=== PATIENT | male | born 1970 | race Caucasian/White ===

== ENCOUNTER → 2017-03-31 | Outpatient (CLI) | payer MEDICAID, OTHER ==
[~2017-03-31] MED LIST: AMLO10TA4 PO; CLON0.1T12 PO; HYDR-3343 PO; HYDR25TA6 PO; METO50TA82 PO; SIMV40TA PO
== END | disposition home or self-care (01) ==
LOC: CFH 11:22
PROVIDERS: ATTEND Specialist
DX: M19.071 Primary osteoarthritis, right ankle and foot (principal); M19.072 Primary osteoarthritis, left ankle and foot; M77.31 Calcaneal spur, right foot; M77.32 Calcaneal spur, left foot

== ENCOUNTER → 2018-04-26 | Outpatient (CLI) | payer MEDICAID | END | disposition home or self-care (01) | LOC: CFH 12:32 | PROVIDERS: ATTEND Internal Medicine Nephrology | DX: N13.2 Hydronephrosis with renal and ureteral calculous obstruction (principal); N13.4 Hydroureter; I12.9 Hypertensive chronic kidney disease with stage 1 through stage 4 chronic kidney disease, or unspecified chronic kidney disease; N18.3 Chronic kidney disease, stage 3 (moderate); I51.7 Cardiomegaly; J84.10 Pulmonary fibrosis, unspecified; M51.34 Other intervertebral disc degeneration, thoracic region; M51.37 Other intervertebral disc degeneration, lumbosacral region; G89.29 Other chronic pain; R16.1 Splenomegaly, not elsewhere classified | CPT/HCPCS: 71046; 72100; 74150 ==

== ENCOUNTER 2018-05-16 14:34 | Inpatient (IN) | payer MEDICAID ==
[~2018-05-16] VITALS: Ht 185.4 cm; Wt 143.5 kg
[2018-05-16 15:10] LABS: BASOPHILS # (AUTO) 0.07 x10^3/uL (0-0.1); BASOPHILS % (AUTO) 1 % (0-1); EOSINOPHILS # (AUTO) 0.36 x10^3/uL (0-0.4); EOSINOPHILS % (AUTO) 5 % (1-7); LYMPHOCYTES # (AUTO) 0.79 x10^3/uL (1-3.4); LYMPHOCYTES % (AUTO) 11 % (22-44); MD NO; MEAN CORPUSCULAR HEMOGLOBIN 30.8 pg (27.5-34.5); MEAN CORPUSCULAR HGB CONC 33.4 g/dL (33.2-36.2); MEAN CORPUSCULAR VOLUME 92.4 fL (81-97); MEAN PLATELET VOLUME 7.5 fL (7.4-10.4); MONOCYTES % (AUTO) 6 % (2-9); NEUTROPHILS # (AUTO) 5.44 x10^3/uL (1.8-6.8); NEUTROPHILS % (AUTO) 77 % (42-75); PLATELET COUNT 189 x10^3/uL (130-400); RED BLOOD COUNT 4.57 x10^6/uL (4.38-5.82); RED CELL DISTRIBUTION WIDTH 13.7 % (9.4-14.8)
[2018-05-16 15:22] LABS: ALBUMIN 3.8 g/dL (3.4-5.0); ANION GAP 9 mmol/L (5-15); CHLORIDE 107 mmol/L (98-107)
[2018-05-16] MEDS ORDERED: FUROSEMIDE 40 MG/4 ML ONE (17:55)
[2018-05-16] MEDS ORDERED: FUROSEMIDE 40 MG/4 ML IV ONE (18:00)
[2018-05-16] MEDS ORDERED: FUROSEMIDE 100 MG/10 ML IV ONE (18:00)
[2018-05-16] MEDS ORDERED: LOSA25TA5 PO (18:55)
[2018-05-16] MEDS ORDERED: GLIP2.5T3 PO (18:55)
[2018-05-16] MEDS ORDERED: HYDR-879 PO (18:55)
[2018-05-16] MEDS ORDERED: METO50TA82 PO (18:55)
[2018-05-16] MEDS ORDERED: ALLO300T PO (18:55)
[2018-05-16] MEDS ORDERED: CHOL400C11 PO (18:55)
[2018-05-16] MEDS ORDERED: COLC0.6T37 PO (18:55)
[2018-05-16] MEDS ORDERED: ACET-76 PO (18:55)
[2018-05-16] MEDS ORDERED: GABA300C10 PO (18:55)
[2018-05-16] MEDS ORDERED: ONDANSETRON 2MG/ML, 2ML IVPush PRN (19:30)
[2018-05-16] MEDS ORDERED: ONDANSETRON ODT 4 MG PO PRN (19:30)
[2018-05-16] MEDS ORDERED: DOCUSATE 100 MG CAPSULE PO PRN (19:30)
[2018-05-16] MEDS ORDERED: ACETAMINOPHEN 325 MG TABLET PO PRN (19:30)
[2018-05-16 19:50] LABS: HCT (SEDRATE) 43.8 % (39.2-51.8)
[2018-05-16 20:06] LABS: HEMOGLOBIN A1C 5.4 % (4.2-6.3)
[2018-05-16] MEDS: TEMAZEPAM 15 MG CAPSULE PO PRN (21:59)
[2018-05-16] MEDS: HEPARIN 5,000 UNITS/ML, 1ML SQ SCH (22:00)
[2018-05-16] MEDS: SIMVASTATIN 40 MG TABLET PO SCH (22:00)
[2018-05-16] MEDS: GABAPENTIN 300 MG CAPSULE PO SCH (22:00)
[2018-05-16] MEDS: CLINDAMYCIN PMX 600MG/50ML 50 ML IV SCH (22:00)
[2018-05-16 22:15] VITALS: BP 115/69
[2018-05-17] MEDS: SODIUM BICARBONATE 8.4% 75 MEQ in SODIUM CHLORIDE 0.45% 1,000 ML IV SCH ×2 (00:49→14:11)
[2018-05-17 01:00] VITALS: BP 122/74
[2018-05-17 06:04] LABS: BASOPHILS # (AUTO) 0.03 x10^3/uL (0-0.1); BASOPHILS % (AUTO) 1 % (0-1); EOSINOPHILS # (AUTO) 0.29 x10^3/uL (0-0.4); EOSINOPHILS % (AUTO) 5 % (1-7); LYMPHOCYTES # (AUTO) 0.94 x10^3/uL (1-3.4); LYMPHOCYTES % (AUTO) 15 % (22-44); MD NO; MEAN CORPUSCULAR HEMOGLOBIN 30.8 pg (27.5-34.5); MEAN CORPUSCULAR HGB CONC 33.6 g/dL (33.2-36.2); MEAN CORPUSCULAR VOLUME 91.6 fL (81-97); MEAN PLATELET VOLUME 7.4 fL (7.4-10.4); MONOCYTES # (AUTO) 0.44 x10^3/uL (0.2-0.8); MONOCYTES % (AUTO) 7 % (2-9); NEUTROPHILS # (AUTO) 4.52 x10^3/uL (1.8-6.8); NEUTROPHILS % (AUTO) 73 % (42-75); PLATELET COUNT 169 x10^3/uL (130-400); RED BLOOD COUNT 4.48 x10^6/uL (4.38-5.82); RED CELL DISTRIBUTION WIDTH 13.9 % (9.4-14.8)
[2018-05-17 06:13] LABS: ALANINE AMINOTRANSFERASE 19 U/L (12-78); ALBUMIN 3.7 g/dL (3.4-5.0); ANION GAP 12 mmol/L (5-15); CALCIUM 10.6 mg/dL (8.5-10.1); CHLORIDE 104 mmol/L (98-107)
[2018-05-17 06:15] LABS: ALKALINE PHOSPHATASE 92 U/L (45-117); BILIRUBIN,TOTAL 0.6 mg/dL (0.2-1.0); TOTAL PROTEIN 7.7 g/dL (6.4-8.2)
[2018-05-17] MEDS: CLINDAMYCIN PMX 600MG/50ML 50 ML IV SCH (06:19)
[2018-05-17] MEDS: HEPARIN 5,000 UNITS/ML, 1ML SQ SCH ×2 (06:19→14:13)
[2018-05-17 07:06] VITALS: BP 128/85
[2018-05-17] MEDS: METOPROLOL TARTRATE 50 MG TABLET PO SCH (10:29)
[2018-05-17 13:47] LABS: MICROSCOPIC AUTO
[2018-05-17 13:53] LABS: CULTURE INDICATED? YES
[2018-05-17 14:01] LABS: CREATININE,URINE RANDOM 70.1 mg/dL
[2018-05-17 14:05] VITALS: BP 114/77
[2018-05-17 19:12] VITALS: BP 106/69
[2018-05-17] MEDS: TEMAZEPAM 15 MG CAPSULE PO PRN (22:34)
[2018-05-17] MEDS: GABAPENTIN 300 MG CAPSULE PO SCH (22:34)
[2018-05-17] MEDS: SIMVASTATIN 40 MG TABLET PO SCH (22:34)
[2018-05-18 01:09] VITALS: BP 116/75
[2018-05-18 05:04] LABS: BASOPHILS # (AUTO) 0.05 x10^3/uL (0-0.1); BASOPHILS % (AUTO) 1 % (0-1); EOSINOPHILS # (AUTO) 0.29 x10^3/uL (0-0.4); EOSINOPHILS % (AUTO) 5 % (1-7); LYMPHOCYTES # (AUTO) 0.89 x10^3/uL (1-3.4); LYMPHOCYTES % (AUTO) 14 % (22-44); MD NO; MEAN CORPUSCULAR HEMOGLOBIN 30.8 pg (27.5-34.5); MEAN CORPUSCULAR HGB CONC 33.6 g/dL (33.2-36.2); MEAN CORPUSCULAR VOLUME 91.7 fL (81-97); MEAN PLATELET VOLUME 7.5 fL (7.4-10.4); MONOCYTES # (AUTO) 0.51 x10^3/uL (0.2-0.8); MONOCYTES % (AUTO) 8 % (2-9); NEUTROPHILS # (AUTO) 4.47 x10^3/uL (1.8-6.8); NEUTROPHILS % (AUTO) 72 % (42-75); PLATELET COUNT 162 x10^3/uL (130-400); RED BLOOD COUNT 4.39 x10^6/uL (4.38-5.82); RED CELL DISTRIBUTION WIDTH 13.5 % (9.4-14.8)
[2018-05-18 05:11] LABS: ANION GAP 13 mmol/L (5-15); CALCIUM 10.5 mg/dL (8.5-10.1); CHLORIDE 103 mmol/L (98-107)
[2018-05-18] MEDS: SODIUM BICARBONATE 8.4% 75 MEQ in SODIUM CHLORIDE 0.45% 1,000 ML IV SCH (06:35)
[2018-05-18 06:53] VITALS: BP 125/77
[2018-05-18] MEDS: METOPROLOL TARTRATE 50 MG TABLET PO SCH (08:50)
[2018-05-18 10:17] LABS: INTERNATIONAL NORMALIZED RATIO 0.99 (0.93-1.1); PROTHROMBIN TIME 10.2 Seconds (9.6-11.5)
[2018-05-18] MEDS ORDERED: LIDOCAINE-MPF 2% ,5ML ONE ×2 (11:14→11:17)
[2018-05-18] MEDS ORDERED: MIDAZOLAM 1 MG/ML, 5ML ONE (11:24)
[2018-05-18] MEDS ORDERED: FENTANYL PF 100 MCG/2ML ONE ×3 (11:24→15:45)
[2018-05-18] MEDS ORDERED: FLUMAZENIL 0.1 MG/1 ML, 5ML ONE (11:52)
[2018-05-18] MEDS ORDERED: CEFAZOLIN PMX 1GM/50ML 50 ML ONE (11:52)
[2018-05-18] MEDS ORDERED: NALOXONE 1 MG/ML, 2ML ONE (11:52)
[2018-05-18 13:44] VITALS: BP 126/82
[2018-05-18] MEDS ORDERED: MIDAZOLAM 1 MG/ML, 2ML ONE (13:59)
[2018-05-18] MEDS ORDERED: SUCCINYLCHOLINE 20 MG/ML, 10ML ONE (14:23)
[2018-05-18] MEDS ORDERED: ONDANSETRON 2MG/ML, 2ML ONE (14:23)
[2018-05-18] MEDS ORDERED: PROPOFOL 10 MG/ML, 20ML ONE (14:23)
[2018-05-18] MEDS ORDERED: ROCURONIUM 10 MG/ML,10ML ONE (14:23)
[2018-05-18] MEDS ORDERED: DEXAMETHASONE 4 MG/ML, 1ML ONE (14:23)
[2018-05-18] MEDS ORDERED: CEFAZOLIN 1,000 MG ONE ×2 (14:42)
[2018-05-18] MEDS ORDERED: OXYcodone 5 MG/5 ML ORAL.SOL UDC ONE (15:45)
[2018-05-18] MEDS ORDERED: PROMETHAZINE 25 MG/ML, 1ML ONE (15:56)
[2018-05-18] MEDS ORDERED: HYDROmorphone 1 MG/ML, 1ML IV PRN (16:00)
[2018-05-18] MEDS ORDERED: OXYcodone 5 MG/5 ML ORAL.SOL UDC PO PRN (16:00)
[2018-05-18] MEDS ORDERED: PROMETHAZINE 25 MG/ML, 1ML IV PRN (16:00)
[2018-05-18] MEDS ORDERED: hydrALAzine 20 MG/ML, 1ML IV PRN (16:00)
[2018-05-18] MEDS ORDERED: FENTANYL PF 100 MCG/2ML IV PRN (16:00)
[2018-05-18] MEDS ORDERED: LABETALOL 5MG/ML, 20ML IV PRN (16:00)
[2018-05-18 21:10] VITALS: BP 133/73
[2018-05-18] MEDS: GABAPENTIN 300 MG CAPSULE PO SCH (21:26)
[2018-05-18] MEDS: AMOXICILLIN/CLAV 500-125MG TABLET PO SCH (21:26)
[2018-05-18] MEDS: SIMVASTATIN 40 MG TABLET PO SCH (21:26)
[2018-05-18] MEDS: TEMAZEPAM 15 MG CAPSULE PO PRN (21:44)
[2018-05-19 02:00] VITALS: BP 119/80
[2018-05-19] MEDS: SODIUM BICARBONATE 8.4% 75 MEQ in SODIUM CHLORIDE 0.45% 1,000 ML IV SCH ×2 (02:15→17:48)
[2018-05-19 05:36] LABS: BASOPHILS % (AUTO) 0 % (0-1); EOSINOPHILS # (AUTO) 0.01 x10^3/uL (0-0.4); EOSINOPHILS % (AUTO) 0 % (1-7); LYMPHOCYTES # (AUTO) 0.42 x10^3/uL (1-3.4); LYMPHOCYTES % (AUTO) 7 % (22-44); MD NO; MEAN CORPUSCULAR HEMOGLOBIN 30.7 pg (27.5-34.5); MEAN CORPUSCULAR HGB CONC 33.7 g/dL (33.2-36.2); MEAN CORPUSCULAR VOLUME 91.3 fL (81-97); MEAN PLATELET VOLUME 7.5 fL (7.4-10.4); MONOCYTES % (AUTO) 3 % (2-9); NEUTROPHILS # (AUTO) 5.35 x10^3/uL (1.8-6.8); NEUTROPHILS % (AUTO) 89 % (42-75); PLATELET COUNT 169 x10^3/uL (130-400); RED BLOOD COUNT 4.61 x10^6/uL (4.38-5.82); RED CELL DISTRIBUTION WIDTH 13.6 % (9.4-14.8)
[2018-05-19 05:46] LABS: ALBUMIN 3.8 g/dL (3.4-5.0); CHLORIDE 103 mmol/L (98-107)
[2018-05-19 05:52] LABS: ALANINE AMINOTRANSFERASE 17 U/L (12-78); ALKALINE PHOSPHATASE 91 U/L (45-117); ANION GAP 11 mmol/L (5-15); BILIRUBIN,TOTAL 0.6 mg/dL (0.2-1.0); CREATININE 9.84 mg/dL (0.7-1.3)
[2018-05-19 07:46] VITALS: BP 122/75
[2018-05-19] MEDS: AMOXICILLIN/CLAV 500-125MG TABLET PO SCH ×2 (08:47→21:26)
[2018-05-19] MEDS: METOPROLOL TARTRATE 50 MG TABLET PO SCH (09:00)
[2018-05-19 14:29] VITALS: BP 147/85
[2018-05-19 19:18] VITALS: BP 128/80
[2018-05-19] MEDS: TEMAZEPAM 15 MG CAPSULE PO PRN (21:26)
[2018-05-19] MEDS: GABAPENTIN 300 MG CAPSULE PO SCH (21:26)
[2018-05-19] MEDS: SIMVASTATIN 40 MG TABLET PO SCH (21:26)
[2018-05-20 03:35] VITALS: BP 121/79
[2018-05-20 05:42] LABS: ANION GAP 9 mmol/L (5-15); CALCIUM 9.9 mg/dL (8.5-10.1); CHLORIDE 103 mmol/L (98-107)
[2018-05-20 05:43] LABS: CREATININE 7.76 mg/dL (0.7-1.3)
[2018-05-20 07:17] VITALS: BP 123/73
[2018-05-20] MEDS: SODIUM BICARBONATE 8.4% 75 MEQ in SODIUM CHLORIDE 0.45% 1,000 ML IV SCH (08:43)
[2018-05-20] MEDS: AMOXICILLIN/CLAV 500-125MG TABLET PO SCH (08:44)
[2018-05-20] MEDS: METOPROLOL TARTRATE 50 MG TABLET PO SCH (08:44)
[2018-05-20 12:03] VITALS: BP 118/73
[2018-05-20 20:00] VITALS: BP 122/72
[2018-05-20] MEDS: GABAPENTIN 300 MG CAPSULE PO SCH (21:00)
[2018-05-20] MEDS: TEMAZEPAM 15 MG CAPSULE PO PRN (21:01)
[2018-05-20] MEDS: SIMVASTATIN 40 MG TABLET PO SCH (21:01)
[2018-05-21 02:00] VITALS: BP 122/80
[2018-05-21 05:25] LABS: CHLORIDE 103 mmol/L (98-107)
[2018-05-21 05:33] LABS: ANION GAP 11 mmol/L (5-15); CALCIUM 9.8 mg/dL (8.5-10.1); CREATININE 7.98 mg/dL (0.7-1.3)
[2018-05-21 07:08] VITALS: BP 133/85
[2018-05-21] MEDS: METOPROLOL TARTRATE 50 MG TABLET PO SCH (11:31)
[2018-05-21 12:41] VITALS: BP 132/83
[2018-05-21] MEDS ORDERED: FENTANYL PF 100 MCG/2ML ONE (13:20)
[2018-05-21] MEDS ORDERED: MIDAZOLAM 1 MG/ML, 5ML ONE (13:20)
[2018-05-21] MEDS ORDERED: FLUMAZENIL 0.1 MG/1 ML, 5ML ONE (13:20)
[2018-05-21] MEDS ORDERED: NALOXONE 1 MG/ML, 2ML ONE (13:21)
[2018-05-21] MEDS ORDERED: LIDOCAINE-MPF 1%, 2ML ONE (13:35)
[2018-05-21 17:22] LABS: CLOSTRIDIUM DIFFICILE ANTIGEN NEGATIVE; CLOSTRIDIUM DIFFICILE TOXIN NEGATIVE (Negative)
[2018-05-21 19:27] VITALS: BP 114/75
[2018-05-21] MEDS: GABAPENTIN 300 MG CAPSULE PO SCH (21:04)
[2018-05-21] MEDS: TEMAZEPAM 15 MG CAPSULE PO PRN (21:05)
[2018-05-21] MEDS: SIMVASTATIN 40 MG TABLET PO SCH (21:05)
[2018-05-22 03:33] VITALS: BP 114/75
[2018-05-22 05:36] LABS: BASOPHILS # (AUTO) 0.06 x10^3/uL (0-0.1); BASOPHILS % (AUTO) 1 % (0-1); EOSINOPHILS # (AUTO) 0.27 x10^3/uL (0-0.4); EOSINOPHILS % (AUTO) 4 % (1-7); LYMPHOCYTES # (AUTO) 1.09 x10^3/uL (1-3.4); LYMPHOCYTES % (AUTO) 15 % (22-44); MD NO; MEAN CORPUSCULAR HEMOGLOBIN 30.5 pg (27.5-34.5); MEAN CORPUSCULAR HGB CONC 33.7 g/dL (33.2-36.2); MEAN CORPUSCULAR VOLUME 90.7 fL (81-97); MEAN PLATELET VOLUME 7.2 fL (7.4-10.4); MONOCYTES # (AUTO) 0.58 x10^3/uL (0.2-0.8); MONOCYTES % (AUTO) 8 % (2-9); NEUTROPHILS # (AUTO) 5.14 x10^3/uL (1.8-6.8); NEUTROPHILS % (AUTO) 72 % (42-75); PLATELET COUNT 158 x10^3/uL (130-400); RED BLOOD COUNT 4.24 x10^6/uL (4.38-5.82); RED CELL DISTRIBUTION WIDTH 13.2 % (9.4-14.8)
[2018-05-22 05:50] LABS: ALBUMIN 3.8 g/dL (3.4-5.0); ANION GAP 10 mmol/L (5-15); CALCIUM 9.6 mg/dL (8.5-10.1); CHLORIDE 103 mmol/L (98-107)
[2018-05-22 05:54] LABS: ALANINE AMINOTRANSFERASE 25 U/L (12-78); ALKALINE PHOSPHATASE 78 U/L (45-117); BILIRUBIN,TOTAL 0.8 mg/dL (0.2-1.0); CREATININE 7.71 mg/dL (0.7-1.3); TOTAL PROTEIN 7.6 g/dL (6.4-8.2)
[2018-05-22 08:13] VITALS: BP 137/87
[2018-05-22 12:55] VITALS: BP 149/92
[2018-05-22 14:01] LABS: ANA SCREEN NEGATIVE (Negative)
[2018-05-22 20:03] VITALS: BP 151/83
[2018-05-22] MEDS: SIMVASTATIN 40 MG TABLET PO SCH (20:36)
[2018-05-22] MEDS: TEMAZEPAM 15 MG CAPSULE PO PRN (20:36)
[2018-05-22] MEDS: GABAPENTIN 300 MG CAPSULE PO SCH (20:36)
[2018-05-22] MEDS: METOPROLOL TARTRATE 50 MG TABLET PO SCH (20:39)
[2018-05-23 00:34] VITALS: BP 124/85
[2018-05-23 05:18] LABS: BASOPHILS # (AUTO) 0.06 x10^3/uL (0-0.1); BASOPHILS % (AUTO) 1 % (0-1); EOSINOPHILS # (AUTO) 0.35 x10^3/uL (0-0.4); EOSINOPHILS % (AUTO) 4 % (1-7); LYMPHOCYTES # (AUTO) 1.25 x10^3/uL (1-3.4); LYMPHOCYTES % (AUTO) 15 % (22-44); MD NO; MEAN CORPUSCULAR HEMOGLOBIN 30.8 pg (27.5-34.5); MEAN CORPUSCULAR HGB CONC 33.8 g/dL (33.2-36.2); MEAN CORPUSCULAR VOLUME 91.1 fL (81-97); MEAN PLATELET VOLUME 7.7 fL (7.4-10.4); MONOCYTES # (AUTO) 0.74 x10^3/uL (0.2-0.8); MONOCYTES % (AUTO) 9 % (2-9); NEUTROPHILS # (AUTO) 6.12 x10^3/uL (1.8-6.8); NEUTROPHILS % (AUTO) 72 % (42-75); PLATELET COUNT 163 x10^3/uL (130-400); RED BLOOD COUNT 4.51 x10^6/uL (4.38-5.82); RED CELL DISTRIBUTION WIDTH 13.8 % (9.4-14.8)
[2018-05-23 05:19] LABS: ALBUMIN 3.9 g/dL (3.4-5.0); ANION GAP 7 mmol/L (5-15); CALCIUM 10.2 mg/dL (8.5-10.1); CHLORIDE 99 mmol/L (98-107)
[2018-05-23 05:21] LABS: CREATININE 5.79 mg/dL (0.7-1.3)
[2018-05-23 06:50] VITALS: BP 120/84
[2018-05-23] MEDS: METOPROLOL TARTRATE 50 MG TABLET PO SCH (08:40)
[2018-05-23 15:26] VITALS: BP 122/76
[2018-05-23 18:46] VITALS: BP 129/82
[2018-05-23] MEDS: GABAPENTIN 300 MG CAPSULE PO SCH (20:29)
[2018-05-23] MEDS: TEMAZEPAM 15 MG CAPSULE PO PRN (20:30)
[2018-05-23] MEDS: SIMVASTATIN 40 MG TABLET PO SCH (20:30)
[2018-05-24 02:55] VITALS: BP 124/85
[2018-05-24 05:37] LABS: ALBUMIN 3.9 g/dL (3.4-5.0); ANION GAP 10 mmol/L (5-15); CALCIUM 9.9 mg/dL (8.5-10.1); CHLORIDE 98 mmol/L (98-107); CREATININE 6.64 mg/dL (0.7-1.3)
[2018-05-24 07:03] VITALS: BP 133/90
[2018-05-24] MEDS: METOPROLOL TARTRATE 50 MG TABLET PO SCH (09:57)
[2018-05-24 14:14] VITALS: BP 127/82
[2018-05-24 18:42] VITALS: BP 119/78
[2018-05-24] MEDS: TEMAZEPAM 15 MG CAPSULE PO PRN (20:58)
[2018-05-24] MEDS: GABAPENTIN 300 MG CAPSULE PO SCH (20:59)
[2018-05-24] MEDS: SIMVASTATIN 40 MG TABLET PO SCH (20:59)
[2018-05-25 00:42] VITALS: BP 130/83
[2018-05-25 05:48] LABS: ALBUMIN 3.9 g/dL (3.4-5.0); CHLORIDE 100 mmol/L (98-107)
[2018-05-25 05:50] LABS: ANION GAP 9 mmol/L (5-15); CALCIUM 10.2 mg/dL (8.5-10.1); CREATININE 7.13 mg/dL (0.7-1.3)
[2018-05-25 05:58] LABS: BASOPHILS # (AUTO) 0.06 x10^3/uL (0-0.1); BASOPHILS % (AUTO) 1 % (0-1); EOSINOPHILS % (AUTO) 5 % (1-7); LYMPHOCYTES # (AUTO) 1.12 x10^3/uL (1-3.4); LYMPHOCYTES % (AUTO) 13 % (22-44); MD NO; MEAN CORPUSCULAR HEMOGLOBIN 30.7 pg (27.5-34.5); MEAN CORPUSCULAR HGB CONC 33.5 g/dL (33.2-36.2); MEAN CORPUSCULAR VOLUME 91.6 fL (81-97); MEAN PLATELET VOLUME 7.9 fL (7.4-10.4); MONOCYTES # (AUTO) 0.66 x10^3/uL (0.2-0.8); MONOCYTES % (AUTO) 8 % (2-9); NEUTROPHILS # (AUTO) 6.28 x10^3/uL (1.8-6.8); NEUTROPHILS % (AUTO) 74 % (42-75); PLATELET COUNT 159 x10^3/uL (130-400); RED BLOOD COUNT 4.56 x10^6/uL (4.38-5.82); RED CELL DISTRIBUTION WIDTH 13.4 % (9.4-14.8)
[2018-05-25 08:24] VITALS: BP 135/89
[2018-05-25] MEDS: METOPROLOL TARTRATE 50 MG TABLET PO SCH (09:00)
[2018-05-25 16:43] VITALS: BP 120/71
[2018-05-25 19:26] VITALS: BP 105/71
[2018-05-25] MEDS: GABAPENTIN 300 MG CAPSULE PO SCH (21:44)
[2018-05-25] MEDS: SIMVASTATIN 40 MG TABLET PO SCH (21:44)
[2018-05-25] MEDS: TEMAZEPAM 15 MG CAPSULE PO PRN (21:49)
[2018-05-26 00:31] VITALS: BP 125/84
[2018-05-26 05:31] LABS: BASOPHILS # (AUTO) 0.05 x10^3/uL (0-0.1); BASOPHILS % (AUTO) 1 % (0-1); EOSINOPHILS # (AUTO) 0.34 x10^3/uL (0-0.4); EOSINOPHILS % (AUTO) 4 % (1-7); LYMPHOCYTES # (AUTO) 1.22 x10^3/uL (1-3.4); LYMPHOCYTES % (AUTO) 14 % (22-44); MD NO; MEAN CORPUSCULAR HEMOGLOBIN 30.9 pg (27.5-34.5); MEAN CORPUSCULAR HGB CONC 33.3 g/dL (33.2-36.2); MEAN CORPUSCULAR VOLUME 92.8 fL (81-97); MONOCYTES # (AUTO) 0.88 x10^3/uL (0.2-0.8); MONOCYTES % (AUTO) 10 % (2-9); NEUTROPHILS # (AUTO) 6.14 x10^3/uL (1.8-6.8); NEUTROPHILS % (AUTO) 71 % (42-75); PLATELET COUNT 157 x10^3/uL (130-400); RED BLOOD COUNT 4.67 x10^6/uL (4.38-5.82); RED CELL DISTRIBUTION WIDTH 13.6 % (9.4-14.8)
[2018-05-26 05:41] LABS: ANION GAP 10 mmol/L (5-15); CHLORIDE 99 mmol/L (98-107)
[2018-05-26 05:45] LABS: CREATININE 6.34 mg/dL (0.7-1.3)
[2018-05-26 08:08] VITALS: BP 128/85
[2018-05-26] MEDS: METOPROLOL TARTRATE 50 MG TABLET PO SCH (09:27)
[2018-05-26 12:00] VITALS: BP 111/73
[2018-05-26 20:00] VITALS: BP 149/87
[2018-05-26] MEDS: GABAPENTIN 300 MG CAPSULE PO SCH (21:01)
[2018-05-26] MEDS: SIMVASTATIN 40 MG TABLET PO SCH (21:01)
[2018-05-26] MEDS: TEMAZEPAM 15 MG CAPSULE PO PRN (21:02)
[2018-05-27 01:18] VITALS: BP 122/86
[2018-05-27 05:36] LABS: BASOPHILS # (AUTO) 0.05 x10^3/uL (0-0.1); BASOPHILS % (AUTO) 1 % (0-1); EOSINOPHILS # (AUTO) 0.39 x10^3/uL (0-0.4); EOSINOPHILS % (AUTO) 5 % (1-7); LYMPHOCYTES % (AUTO) 16 % (22-44); MD NO; MEAN CORPUSCULAR HEMOGLOBIN 30.6 pg (27.5-34.5); MEAN CORPUSCULAR HGB CONC 33.8 g/dL (33.2-36.2); MEAN CORPUSCULAR VOLUME 90.4 fL (81-97); MEAN PLATELET VOLUME 8.1 fL (7.4-10.4); MONOCYTES # (AUTO) 0.82 x10^3/uL (0.2-0.8); MONOCYTES % (AUTO) 10 % (2-9); NEUTROPHILS # (AUTO) 5.81 x10^3/uL (1.8-6.8); NEUTROPHILS % (AUTO) 69 % (42-75); PLATELET COUNT 167 x10^3/uL (130-400); RED BLOOD COUNT 4.55 x10^6/uL (4.38-5.82); RED CELL DISTRIBUTION WIDTH 13.3 % (9.4-14.8)
[2018-05-27 05:43] LABS: CALCIUM 10.6 mg/dL (8.5-10.1); CHLORIDE 99 mmol/L (98-107)
[2018-05-27 05:46] LABS: ANION GAP 12 mmol/L (5-15); CREATININE 7.04 mg/dL (0.7-1.3)
[2018-05-27 06:37] VITALS: BP 129/82
[2018-05-27] MEDS: METOPROLOL TARTRATE 50 MG TABLET PO SCH (08:48)
[2018-05-27 12:07] VITALS: BP 136/76
[2018-05-27] MEDS ORDERED: CATHFLO-ALTEPLASE 2 MG/2 ML CATHFLUSH ONE (17:00)
[2018-05-27 19:20] VITALS: BP 115/82
[2018-05-27] MEDS: GABAPENTIN 300 MG CAPSULE PO SCH (21:38)
[2018-05-27] MEDS: TEMAZEPAM 15 MG CAPSULE PO PRN (21:38)
[2018-05-27] MEDS: SIMVASTATIN 40 MG TABLET PO SCH (21:39)
[2018-05-28 01:01] VITALS: BP 115/79
[2018-05-28 05:37] LABS: BASOPHILS # (AUTO) 0.05 x10^3/uL (0-0.1); BASOPHILS % (AUTO) 1 % (0-1); EOSINOPHILS # (AUTO) 0.37 x10^3/uL (0-0.4); EOSINOPHILS % (AUTO) 5 % (1-7); LYMPHOCYTES # (AUTO) 1.32 x10^3/uL (1-3.4); LYMPHOCYTES % (AUTO) 16 % (22-44); MD NO; MEAN CORPUSCULAR HEMOGLOBIN 30.8 pg (27.5-34.5); MEAN CORPUSCULAR HGB CONC 33.6 g/dL (33.2-36.2); MEAN CORPUSCULAR VOLUME 91.4 fL (81-97); MEAN PLATELET VOLUME 7.9 fL (7.4-10.4); MONOCYTES # (AUTO) 1.04 x10^3/uL (0.2-0.8); MONOCYTES % (AUTO) 13 % (2-9); NEUTROPHILS # (AUTO) 5.25 x10^3/uL (1.8-6.8); NEUTROPHILS % (AUTO) 65 % (42-75); PLATELET COUNT 147 x10^3/uL (130-400); RED BLOOD COUNT 4.35 x10^6/uL (4.38-5.82); RED CELL DISTRIBUTION WIDTH 13.7 % (9.4-14.8)
[2018-05-28 05:58] LABS: ANION GAP 8 mmol/L (5-15); CALCIUM 9.8 mg/dL (8.5-10.1); CHLORIDE 100 mmol/L (98-107); CREATININE 6.82 mg/dL (0.7-1.3)
[2018-05-28 06:42] VITALS: BP 128/82
[2018-05-28] MEDS: METOPROLOL TARTRATE 50 MG TABLET PO SCH (09:00)
[2018-05-28] MEDS: ALLOPURINOL 100 MG TABLET PO SCH (09:00)
[2018-05-28 13:12] VITALS: BP 129/90
[2018-05-28] MEDS ORDERED: BUPIVACAINE/PF-EPI 0.5% 1:200K ONE (15:31)
[2018-05-28] MEDS ORDERED: FENTANYL PF 250 MCG/5ML ONE (15:43)
[2018-05-28] MEDS ORDERED: MIDAZOLAM 1 MG/ML, 2ML ONE (15:43)
[2018-05-28] MEDS ORDERED: ONDANSETRON 2MG/ML, 2ML ONE (16:02)
[2018-05-28] MEDS ORDERED: PROPOFOL 10 MG/ML, 20ML ONE (16:02)
[2018-05-28] MEDS ORDERED: NEOSTIGMINE 1 MG/ML, 10ML ONE (16:02)
[2018-05-28] MEDS ORDERED: SUCCINYLCHOLINE 20 MG/ML, 10ML ONE ×2 (16:02)
[2018-05-28] MEDS ORDERED: GLYCOPYRROLATE 0.2MG/1ML, 5ML ONE (16:02)
[2018-05-28] MEDS ORDERED: CEFAZOLIN 1,000 MG ONE (16:02)
[2018-05-28] MEDS ORDERED: hydrALAzine 20 MG/ML, 1ML IV PRN (17:30)
[2018-05-28] MEDS ORDERED: HYDROmorphone 1 MG/ML, 1ML IV PRN (17:30)
[2018-05-28] MEDS ORDERED: KETOROLAC 30 MG/1 ML IV PRN (17:30)
[2018-05-28] MEDS ORDERED: MEPERIDINE/PF 25MG/0.5ML IVPush PRN (17:30)
[2018-05-28] MEDS ORDERED: ALBUTEROL SULFATE 2.5 MG/3 ML NPPB PRN (17:30)
[2018-05-28] MEDS ORDERED: PROMETHAZINE 25 MG/ML, 1ML IV PRN (17:30)
[2018-05-28] MEDS ORDERED: LABETALOL 5MG/ML, 20ML IV PRN (17:30)
[2018-05-28] MEDS ORDERED: OXYcodone 5 MG/5 ML ORAL.SOL UDC PO PRN (17:30)
[2018-05-28] MEDS ORDERED: ONDANSETRON 2MG/ML, 2ML IVPush PRN (17:30)
[2018-05-28] MEDS ORDERED: FENTANYL PF 100 MCG/2ML IV PRN (17:30)
[2018-05-28] MEDS ORDERED: OXYcodone 5 MG/5 ML ORAL.SOL UDC ONE (17:32)
[2018-05-28] MEDS ORDERED: HYDROmorphone 2 MG/ML, 1ML ONE (17:58)
[2018-05-28] MEDS ORDERED: PROMETHAZINE 25 MG/ML, 1ML ONE (18:01)
[2018-05-28 20:24] VITALS: BP 105/69
[2018-05-28] MEDS: SIMVASTATIN 40 MG TABLET PO SCH (20:59)
[2018-05-28] MEDS: GABAPENTIN 300 MG CAPSULE PO SCH (20:59)
[2018-05-29] MEDS: TEMAZEPAM 15 MG CAPSULE PO PRN (00:07)
[2018-05-29 00:10] VITALS: BP 117/82
[2018-05-29 04:10] VITALS: BP 136/85
[2018-05-29 06:48] VITALS: BP 109/79
[2018-05-29] MEDS: METOPROLOL TARTRATE 50 MG TABLET PO SCH (09:49)
[2018-05-29] MEDS: ALLOPURINOL 100 MG TABLET PO SCH (09:49)
[2018-05-29 12:15] VITALS: BP 103/66
[2018-05-29] MEDS ORDERED: ALLO100T30 PO (15:10)
[2018-05-29] MEDS ORDERED: DOCU-131 PO (15:10)
[2018-05-29] MEDS ORDERED: ONDA4TAB13 PO (15:10)
== END 2018-05-29 17:59 | disposition home or self-care (01) | DRG 823 ==
LOC: ED 18:02 → EDIP 18:03 → ED 18:27 → 4EST 19:57 → 4WST 05-19 09:58
PROVIDERS: ADMIT Internal Medicine; ATTEND Internal Medicine
PROC: 0TCB8ZZ Extirpation of Matter from Bladder, Via Natural or Artificial Opening Endoscopic (ICD-10-PCS; 2018-05-18)
PROC: 0JH63XZ Insertion of Tunneled Vascular Access Device into Chest Subcutaneous Tissue and Fascia, Percutaneous Approach (ICD-10-PCS; 2018-05-18)
PROC: 02HV33Z Insertion of Infusion Device into Superior Vena Cava, Percutaneous Approach (ICD-10-PCS; 2018-05-18)
PROC: B548ZZA Ultrasonography of Superior Vena Cava, Guidance (ICD-10-PCS; 2018-05-18)
PROC: 0T738DZ Dilation of Right Kidney Pelvis with Intraluminal Device, Via Natural or Artificial Opening Endoscopic (ICD-10-PCS; principal; 2018-05-18 14:30)
PROC: 0TB03ZX Excision of Right Kidney, Percutaneous Approach, Diagnostic (ICD-10-PCS; 2018-05-21)
PROC: 07BB4ZX Excision of Mesenteric Lymphatic, Percutaneous Endoscopic Approach, Diagnostic (ICD-10-PCS; 2018-05-28)
PROC: 8E0W4CZ Robotic Assisted Procedure of Trunk Region, Percutaneous Endoscopic Approach (ICD-10-PCS; 2018-05-28)
DX: C85.93 Non-Hodgkin lymphoma, unspecified, intra-abdominal lymph nodes (principal); N17.0 Acute kidney failure with tubular necrosis; N18.6 End stage renal disease; I13.11 Hypertensive heart and chronic kidney disease without heart failure, with stage 5 chronic kidney disease, or end stage renal disease; E87.2 Acidosis; L03.115 Cellulitis of right lower limb; Z68.41 Body mass index [BMI] 40.0-44.9, adult; N13.2 Hydronephrosis with renal and ureteral calculous obstruction; E11.22 Type 2 diabetes mellitus with diabetic chronic kidney disease; E66.01 Morbid (severe) obesity due to excess calories; E78.5 Hyperlipidemia, unspecified; E83.52 Hypercalcemia; G47.33 Obstructive sleep apnea (adult) (pediatric); M10.9 Gout, unspecified; N21.0 Calculus in bladder; R16.1 Splenomegaly, not elsewhere classified; N25.89 Other disorders resulting from impaired renal tubular function; N26.9 Renal sclerosis, unspecified; R31.0 Gross hematuria; R59.0 Localized enlarged lymph nodes; Z82.49 Family history of ischemic heart disease and other diseases of the circulatory system; Z99.2 Dependence on renal dialysis; Z87.442 Personal history of urinary calculi; Z81.8 Family history of other mental and behavioral disorders; Z83.3 Family history of diabetes mellitus; Z90.49 Acquired absence of other specified parts of digestive tract
CPT/HCPCS: 36415; 36600; 74018; 76000; 77001; 84155; 84156; 99285; J3490; 36558; 50200; 71045; 74176; 74177; 76770; 76937; 77012; 80048; 80053; 80069; 81001; 82040; 82164; 82306; 82330; 82360; 82397; 82436; 82550; 82570; 82652; 82784; 82800; 83036; 83735; 83880; 83970; 84100; 84133; 84165; 84166; 84300; 84550; 85025; 85610; 85651; 85730; 86038; 86160; 86162; 86334; 86335; 86480; 86704; 86706; 87086; 87324; 87340; 88300; 88305; 88331; 93970; 96374; 99156; 99157; J0690; J1100; J1170; J1644; J1940; J2250; J2405; J2550; J2704; J2710; J3010; Q0162; C1750; C1758; C1769; C2617; J0330; J1642; J2310

== ENCOUNTER → 2018-06-29 | Outpatient (CLI) | payer MEDICAID ==
[~2018-06-29] MED LIST changes: +ACET-76 PO; +ALLO100T30 PO; +ALLO100T64 PO; +ALLO300T PO; +CHOL400C11 PO; +CIPR500T3 PO; +COLC0.6T37 PO; +DOCU-131 PO; +GABA300C10 PO; +GLIP2.5T3 PO; +HYDR-879 PO; +LOSA25TA5 PO; +ONDA4TAB13 PO; +PRED20TA PO; +SIMV40TA3 PO
== END | disposition home or self-care (01) ==
LOC: STAR 15:18
PROVIDERS: ATTEND Urology
DX: Z02.9 Encounter for administrative examinations, unspecified (principal)

== ENCOUNTER 2018-07-05 12:17 | Day surgery (SDC) | payer MEDICAID ==
[~2018-07-05] VITALS: Ht 182.9 cm; Wt 152.2 kg
[~2018-07-05 12:17] MED LIST changes: -CIPR500T3 PO
[2018-07-05 13:12] VITALS: BP 136/93
[2018-07-05] MEDS ORDERED: LACTATED RINGERS 1,000 ML IV SCH (13:18)
[2018-07-05] MEDS ORDERED: CIPR500T3 PO (13:48)
[2018-07-05] MEDS ORDERED: BUPIVACAINE/PF 0.5% ONE (14:04)
[2018-07-05] MEDS ORDERED: SODIUM BICARBONATE 1 MEQ/ML, 50ML VIAL ONE (14:05)
[2018-07-05] MEDS ORDERED: HYDROCORTISONE 100 MG INJ. ONE (14:14)
[2018-07-05] MEDS ORDERED: FENTANYL PF 250 MCG/5ML ONE (14:17)
[2018-07-05] MEDS ORDERED: MIDAZOLAM 1 MG/ML, 2ML ONE (14:17)
[2018-07-05] MEDS ORDERED: PROMETHAZINE 25 MG/ML, 1ML IV PRN (14:30)
[2018-07-05] MEDS ORDERED: MORPHINE SULFATE 4 MG/ML, 1ML IVPush PRN (14:30)
[2018-07-05] MEDS ORDERED: LABETALOL 5MG/ML, 20ML IV PRN (14:30)
[2018-07-05] MEDS ORDERED: FENTANYL PF 100 MCG/2ML IV PRN (14:30)
[2018-07-05] MEDS ORDERED: ACETAMINOPHEN 325 MG TABLET PO PRN (14:30)
[2018-07-05] MEDS ORDERED: ONDANSETRON ODT 8 MG PO PRN (14:30)
[2018-07-05] MEDS ORDERED: OXYcodone 5 MG/5 ML ORAL.SOL UDC PO PRN (14:30)
[2018-07-05] MEDS ORDERED: PROMETHAZINE 25 MG SUPP PR PRN (14:30)
[2018-07-05] MEDS ORDERED: ONDANSETRON 2MG/ML, 2ML IV PRN (14:30)
[2018-07-05] MEDS ORDERED: METOPROLOL 1 MG/ML, 5ML IV PRN (14:30)
[2018-07-05] MEDS ORDERED: DEXAMETHASONE 4 MG/ML, 1ML ONE (15:59)
[2018-07-05] MEDS ORDERED: ONDANSETRON 2MG/ML, 2ML ONE (15:59)
[2018-07-05] MEDS ORDERED: GLYCOPYRROLATE 0.2MG/1ML, 5ML ONE (15:59)
[2018-07-05] MEDS ORDERED: PROPOFOL 10 MG/ML, 20ML ONE (15:59)
[2018-07-05] MEDS ORDERED: CEFAZOLIN 1,000 MG ONE (15:59)
[2018-07-05] MEDS ORDERED: NEOSTIGMINE 1 MG/ML, 10ML ONE (15:59)
[2018-07-05] MEDS ORDERED: ROCURONIUM 10MG/ML,5ML ONE (15:59)
[2018-07-05] MEDS ORDERED: SUCCINYLCHOLINE 20 MG/ML, 10ML ONE (15:59)
[2018-07-05] MEDS ORDERED: OXYcodone 5 MG/5 ML ORAL.SOL UDC ONE (16:28)
[2018-07-05] MEDS ORDERED: PROMETHAZINE 25 MG/ML, 1ML ONE (16:29)
[2018-07-05] MEDS ORDERED: SIMVASTATIN 40 MG TABLET PO SCH (21:00)
[2018-07-06] MEDS ORDERED: METOPROLOL TARTRATE 50 MG TABLET PO SCH (09:00)
== END 2018-07-05 18:30 | disposition home or self-care (01) ==
LOC: OUT 12:17
PROVIDERS: ATTEND Urology
DX: N20.2 Calculus of kidney with calculus of ureter (principal); E11.22 Type 2 diabetes mellitus with diabetic chronic kidney disease; I13.11 Hypertensive heart and chronic kidney disease without heart failure, with stage 5 chronic kidney disease, or end stage renal disease; N18.6 End stage renal disease; E66.01 Morbid (severe) obesity due to excess calories; M54.30 Sciatica, unspecified side; M10.9 Gout, unspecified; E78.00 Pure hypercholesterolemia, unspecified; G47.33 Obstructive sleep apnea (adult) (pediatric); Z90.49 Acquired absence of other specified parts of digestive tract; Z68.42 Body mass index [BMI] 45.0-49.9, adult; Z79.899 Other long term (current) drug therapy; Z98.890 Other specified postprocedural states; Z99.2 Dependence on renal dialysis
CPT/HCPCS: 52356; C1758; C2617; J0330; J0690; J1100; J1720; J2250; J2405; J2550; J2704; J2710; J3010; J3490; J7120

== ENCOUNTER → 2018-07-11 | Outpatient (CLI) | payer MEDICAID ==
[~2018-07-11] MED LIST changes: +CIPR500T3 PO
== END | disposition home or self-care (01) ==
LOC: RAD 10:47
PROVIDERS: ATTEND Urology
DX: N20.0 Calculus of kidney (principal); Z96.0 Presence of urogenital implants
CPT/HCPCS: 74018

== ENCOUNTER → 2018-08-06 | Outpatient (CLI) | payer MEDICAID ==
[~2018-08-06] MED LIST changes: +ACET-1600 PO; -LOSA25TA5 PO; +LOSA25TA6 PO
== END | disposition home or self-care (01) ==
LOC: STAR 14:11
PROVIDERS: ATTEND Urology
DX: Z01.818 Encounter for other preprocedural examination (principal); N20.0 Calculus of kidney
CPT/HCPCS: 36415; 93005; G0103

== ENCOUNTER → 2018-08-14 | Outpatient (CLI) | payer MEDICAID | END | disposition home or self-care (01) | LOC: RAD 12:36 | PROVIDERS: ATTEND Urology | DX: N20.0 Calculus of kidney (principal) | CPT/HCPCS: 74018 ==

== ENCOUNTER 2018-08-15 10:17 | Day surgery (SDC) | payer MEDICAID ==
[2018-08-06 14:44] VITALS: BP 141/98
[~2018-08-15] VITALS: Ht 182.9 cm; Wt 151.0 kg
[2018-08-15] MEDS ORDERED: LACTATED RINGERS 1,000 ML IV SCH (10:43)
[2018-08-15] MEDS ORDERED: HYDROCORTISONE 100 MG INJ. ONE (10:50)
[2018-08-15] MEDS ORDERED: GABAPENTIN 300 MG CAPSULE PO ONE (11:00)
[2018-08-15] MEDS ORDERED: ONDANSETRON ODT 8 MG PO ONE (11:00)
[2018-08-15] MEDS ORDERED: ACETAMINOPHEN 500 MG TABLET PO ONE (11:00)
[2018-08-15] MEDS ORDERED: SUCCINYLCHOLINE 20 MG/ML, 10ML ONE (11:04)
[2018-08-15] MEDS ORDERED: MIDAZOLAM 1 MG/ML, 2ML ONE (11:20)
[2018-08-15] MEDS ORDERED: FENTANYL PF 100 MCG/2ML ONE ×2 (11:20)
[2018-08-15] MEDS ORDERED: OXYcodone 5 MG/5 ML ORAL.SOL UDC PO PRN (12:00)
[2018-08-15] MEDS ORDERED: LABETALOL 5MG/ML, 20ML IV PRN (12:00)
[2018-08-15] MEDS ORDERED: FENTANYL PF 100 MCG/2ML IV PRN (12:00)
[2018-08-15] MEDS ORDERED: PROMETHAZINE 25 MG SUPP PR PRN (12:00)
[2018-08-15] MEDS ORDERED: ONDANSETRON ODT 8 MG PO PRN (12:00)
[2018-08-15] MEDS ORDERED: ALBUTEROL/IPRATROPIUM 2.5MG/0.5MG, 3 ML NPPB PRN (12:00)
[2018-08-15] MEDS ORDERED: MIDAZOLAM 1 MG/ML, 2ML IV PRN (12:00)
[2018-08-15] MEDS ORDERED: DEXAMETHASONE 4 MG/ML, 1ML ONE (12:23)
[2018-08-15] MEDS ORDERED: PROPOFOL 10 MG/ML, 20ML ONE (12:23)
[2018-08-15] MEDS ORDERED: CEFAZOLIN 1,000 MG ONE (12:23)
[2018-08-15] MEDS ORDERED: OMNIPAQUE 350 MG/ML, 50 ML BOTTLE ONE (13:25)
== END 2018-08-15 14:40 | disposition home or self-care (01) ==
LOC: OUT 10:17
PROVIDERS: ATTEND Urology
DX: N20.0 Calculus of kidney (principal); E66.9 Obesity, unspecified; M10.9 Gout, unspecified; G47.33 Obstructive sleep apnea (adult) (pediatric); Z72.89 Other problems related to lifestyle; Z87.891 Personal history of nicotine dependence; Z79.899 Other long term (current) drug therapy; Z90.49 Acquired absence of other specified parts of digestive tract; Z87.440 Personal history of urinary (tract) infections
CPT/HCPCS: 52353; 74420; C1758; J0330; J0690; J1100; J1720; J2250; J2704; J3010; Q9967

== ENCOUNTER 2019-09-24 11:02 | Emergency (ER) | payer MEDICAID ==
[~2019-09-24] VITALS: Ht 182.9 cm; Wt 169.0 kg
[~2019-09-24 11:02] MED LIST changes: +AMLO10TA8 PO; +DULO60CA7 PO; +HYDR-3622 PO; -HYDR-879 PO; +HYDR200T72 PO; +LOSA25TA25 PO; -LOSA25TA6 PO
--- NOTE | 2019-09-24 11:08 | NUR ---
Pt ambulates to room from triage with steady gait and balance. ROBBIEN.
--- NOTE | 2019-09-24 11:42 | NUR ---
LUNCH RN: IV PLACED, LABS DRAWN. RAD AT BEDSIDE. VSS AT THIS TIME. CALL LIGHT WITHIN REACH. AWAITING FURTHER ORDERS AND RECHECK
[2019-09-24 11:50] LABS: BASOPHILS # (AUTO) 0.02 x10^3/uL (0-0.1); BASOPHILS % (AUTO) 0 % (0-1); EOSINOPHILS # (AUTO) 0.26 x10^3/uL (0-0.4); EOSINOPHILS % (AUTO) 4 % (1-7); LYMPHOCYTES # (AUTO) 0.85 x10^3/uL (1-3.4); LYMPHOCYTES % (AUTO) 13 % (22-44); MD NO; MEAN CORPUSCULAR HEMOGLOBIN 30.8 pg (27.5-34.5); MEAN CORPUSCULAR HGB CONC 32.9 g/dL (33.2-36.2); MEAN CORPUSCULAR VOLUME 93.6 fL (81-97); MEAN PLATELET VOLUME 7.9 fL (7.4-10.4); MONOCYTES # (AUTO) 0.39 x10^3/uL (0.2-0.8); MONOCYTES % (AUTO) 6 % (2-9); NEUTROPHILS # (AUTO) 5.02 x10^3/uL (1.8-6.8); NEUTROPHILS % (AUTO) 77 % (42-75); PLATELET COUNT 168 x10^3/uL (130-400); RED BLOOD COUNT 4.88 x10^6/uL (4.38-5.82); RED CELL DISTRIBUTION WIDTH 13.7 % (9.4-14.8)
[2019-09-24 12:03] LABS: ALANINE AMINOTRANSFERASE 18 U/L (12-78); ALBUMIN 3.7 g/dL (3.4-5.0); ANION GAP 5 mmol/L (5-15); CALCIUM 9.3 mg/dL (8.5-10.1); CHLORIDE 104 mmol/L (98-107); CREATININE 2.84 mg/dL (0.7-1.3)
[2019-09-24 12:07] LABS: ALKALINE PHOSPHATASE 96 U/L (45-117); BILIRUBIN,TOTAL 0.6 mg/dL (0.2-1.0); TOTAL PROTEIN 7.5 g/dL (6.4-8.2); TROPONIN I < 0.015 ng/mL (0.000-0.045)
--- NOTE | 2019-09-24 12:29 | NUR ---
Pt provided additonal warm blanket per request. NADN. No other needs expressed. EDMD to discuss POC.
[2019-09-24 13:54] VITALS: BP 130/56
--- NOTE | 2019-09-24 13:57 | NUR ---
ANUM NOTE: NEPHROLOGY PAGED FOR CONSULT
--- NOTE | 2019-09-24 14:24 | NUR ---
Patient given discharge instructions and they have confirmed that they understand the instructions. Patient ambulatory with steady gait. Pt left with d/c paperwork, Rx, and all personal belongings. NADN. No other needs requested.
== END 2019-09-24 14:26 | disposition home or self-care (01) ==
LOC: ED 14:05
DX: R60.0 Localized edema (principal); I12.9 Hypertensive chronic kidney disease with stage 1 through stage 4 chronic kidney disease, or unspecified chronic kidney disease; N18.9 Chronic kidney disease, unspecified
CPT/HCPCS: 36415; 71045; 80053; 83880; 84484; 85025; 93005; 99284

== ENCOUNTER 2020-09-13 13:03 | Emergency (ER) | payer MEDICAID ==
[~2020-09-13] VITALS: Ht 182.9 cm; Wt 169.5 kg
[~2020-09-13 13:03] MED LIST changes: +SIMV40TA20 PO; -SIMV40TA3 PO
[2020-09-13 13:14] VITALS: BP 144/81
[2020-09-13] MEDS ORDERED: OXYcodone/APAP 10/325MG TABLET ONE (13:52)
[2020-09-13] MEDS ORDERED: OXYcodone/APAP 10/325MG TABLET PO ONE (14:00)
[2020-09-13] MEDS ORDERED: KETOROLAC 30 MG/1 ML ONE (14:38)
[2020-09-13] MEDS ORDERED: KETOROLAC 30 MG/1 ML IM ONE (15:00)
== END 2020-09-13 15:16 | disposition home or self-care (01) ==
LOC: ED 13:26
DX: S42.232A 3-part fracture of surgical neck of left humerus, initial encounter for closed fracture (principal); I10 Essential (primary) hypertension; E11.9 Type 2 diabetes mellitus without complications; W01.0XXA Fall on same level from slipping, tripping and stumbling without subsequent striking against object, initial encounter; Y93.89 Activity, other specified; Y92.098 Other place in other non-institutional residence as the place of occurrence of the external cause; Y99.8 Other external cause status
CPT/HCPCS: 73030; 96372; 99283; J1885

== ENCOUNTER 2021-08-12 14:08 | Emergency (ER) | payer MEDICAID ==
[~2021-08-12] VITALS: Ht 182.9 cm; Wt 145.4 kg
[~2021-08-12 14:08] MED LIST changes: +AMLO-211 PO; -AMLO10TA8 PO; -CIPR500T3 PO; +CIPR500T4 PO
--- NOTE | 2021-08-12 14:32 | NUR ---
PT BIB [facility] FROM HOME FOR BILAT LOWER LEG EDEMA & CELLULITIS, CAUSING PT TO HAVE DIFFICULTY AMBULATING. PT STATES THE SWELLING IS CHRONIC AND THE WOUNDS HAVE BEEN THERE "FOR A COUPLE WEEKS". PT A&OX4, CALM, C/O PAIN 05/29 BUT IN NO OBVIOUS DISTRESS AT THIS TIME. ER PA WAS IN TO SEE PT.
[2021-08-12 14:54] LABS: BASOPHILS % (AUTO) 1 % (0-1); EOSINOPHILS % (AUTO) 2 % (1-7); LYMPHOCYTES % (AUTO) 6 % (22-44); MEAN CORPUSCULAR HEMOGLOBIN 30.1 pg (27.5-34.5); MEAN CORPUSCULAR HGB CONC 33.2 g/dL (33.2-36.2); MEAN PLATELET VOLUME 7.8 fL (7.4-10.4); MONOCYTES % (AUTO) 7 % (2-9); NEUTROPHILS % (AUTO) 84 % (42-75); PLATELET COUNT 184 x10^3/uL (130-400); RED BLOOD COUNT 4.71 x10^6/uL (4.38-5.82); RED CELL DISTRIBUTION WIDTH 13.9 % (9.4-14.8)
[2021-08-12 15:08] LABS: ALANINE AMINOTRANSFERASE 27 U/L (12-78); ALBUMIN 3.5 g/dL (3.4-5.0); ANION GAP 5 mmol/L (5-15); CALCIUM 8.9 mg/dL (8.5-10.1); CHLORIDE 103 mmol/L (98-107); CREATININE 2.03 mg/dL (0.7-1.3)
[2021-08-12 15:12] LABS: ALKALINE PHOSPHATASE 90 U/L (45-117); BILIRUBIN,TOTAL 0.6 mg/dL (0.2-1.0); TOTAL PROTEIN 7.3 g/dL (6.4-8.2)
--- NOTE | 2021-08-12 15:36 | NUR ---
REPORTED TO GERARDO MARQUES.
--- NOTE | 2021-08-12 15:40 | NUR ---
REPORT FROM TWILA MARQUES
[2021-08-12] MEDS ORDERED: NEOSPORIN OINT. PKT 1 PACKET ONE (16:45)
--- NOTE | 2021-08-12 18:11 | NUR ---
Patient given discharge instructions and they have confirmed that they understand the instructions. Patient ambulatory with steady gait and fww. NAD, all questions answered appropriately, denies additional needs at this time. No personal belongings left in room after discharge.
[2021-08-12 18:12] VITALS: BP 140/90
== END 2021-08-12 18:14 | disposition home or self-care (01) ==
LOC: ED 17:03
DX: I87.2 Venous insufficiency (chronic) (peripheral) (principal); R60.0 Localized edema; E11.22 Type 2 diabetes mellitus with diabetic chronic kidney disease; I12.9 Hypertensive chronic kidney disease with stage 1 through stage 4 chronic kidney disease, or unspecified chronic kidney disease; N18.30 Chronic kidney disease, stage 3 unspecified; R94.31 Abnormal electrocardiogram [ECG] [EKG]; M10.9 Gout, unspecified; M19.90 Unspecified osteoarthritis, unspecified site
CPT/HCPCS: 36415; 71045; 80053; 83880; 85025; 93005; 93970; 99285